=== PATIENT | female | born 2000 | race Caucasian/White ===

== ENCOUNTER 2018-06-20 17:06 | Emergency (ER) | payer OTHER ==
[2018-06-20] MEDS ORDERED: Lidocaine 1% 30 ML SDV INJECT ONE (17:33)
[2018-06-20] MEDS ORDERED: Diphtheria,Pertussis(Acell),Tetanus Vaccine 0.5 ML SDV IM ONE (17:33)
[2018-06-20] MEDS ORDERED: Bacitracin Oint 1 GM U/D Packet TOP ONE (17:40)
--- NOTE | 2018-06-20 17:46 | EDM.PDOC ---
Scribed by Magy Fernandez 06/20/18 0359 for Can Vazquez MD ED HPI GENERAL MEDICAL PROBLEM - General Chief Complaint: General Stated Complaint: FISH HOOK IN FINGER [phone] Time Seen by Provider: 06/20/18 17:28 Source of Information: Reports: Patient, RN, RN Notes Reviewed History Limitations: Reports: No Limitations - History of Present Illness INITIAL COMMENTS - FREE TEXT/NARRATIVE: Patient presents to ER by POV with a fishhook in her right thumb. No other injury. Date of last tetanus is unknown. Onset: Today Location: Reports: Upper Extremity, Right Quality: Reports: Ache Severity: Moderate Improves with: Reports: None Worsens with: Reports: None Associated Symptoms: Reports: No Other Symptoms - Related Data Allergies Allergy/AdvReac Type Severity Reaction Status Date / Time No Known Allergies Allergy Verified 06/20/18 17:20 Home Meds: Home Meds . [No Known Home Meds] 06/20/18 [History] Past Medical History - Past Health History Medical/Surgical History: Denies Medical/Surgical History Social & Family History - Tobacco Use Smoking Status *Q: Never Smoker Second Hand Smoke Exposure: No - Caffeine Use Caffeine Use: Reports: Soda - Recreational Drug Use Recreational Drug Use: No - Living Situation & Occupation Living situation: Reports: with Family ED ROS GENERAL - Review of Systems Review Of Systems: ROS reveals no pertinent complaints other than HPI. ED EXAM, GENERAL - Physical Exam Exam: See Below Exam Limited By: No Limitations General Appearance: Alert, WD/WN, No Apparent Distress Head: Atraumatic, Normocephalic Neck: Normal Inspection Respiratory/Chest: No Respiratory Distress Cardiovascular: Regular Rate, Rhythm Extremities: Normal Range of Motion, Other (small treble fishhook in right thumb , no erythema, no bleeding) Neurological: Alert, Oriented, No Motor/Sensory Deficits Psychiatric: Normal Mood Skin Exam: Warm, Dry Course - Vital Signs Last Recorded V/S: Last Vital Signs Temp 36.8 C 06/20/18 17:24 Pulse 83 06/20/18 17:24 Resp 16 06/20/18 17:24 BP 136/67 06/20/18 17:24 Pulse Ox 99 06/20/18 17:24 - Orders/Labs/Meds Orders: Active Orders 24 hr Category Date Time Status Vaccines to be Administered [RC] PER UNIT ROUTINE Care 06/20/18 17:33 Active Diphth,Pertuss(Acell),Tet Vac [Adacel] Med 06/20/18 17:33 Once 0.5 ml IM .ONCE ONE Medication Orders Diphtheria/Tetanus/Acell Pertussis (Adacel) 0.5 ml IM .ONCE ONE Stop: 06/20/18 17:34 Meds: Medications Generic Name Dose Route Start Last Admin Trade Name Freq PRN Reason Stop Dose Admin Diphtheria/Tetanus/Acell Pertussis 0.5 ml 06/20/18 17:33 Adacel IM 06/20/18 17:34 .ONCE ONE Discontinued Medications Generic Name Dose Route Start Last Admin Trade Name Freq PRN Reason Stop Dose Admin Bacitracin 1 dose 06/20/18 17:40 Bacitracin Oint 1 Gm TOP 06/20/18 17:41 ONETIME ONE Lidocaine HCl 30 ml 06/20/18 17:33 Xylocaine-Mpf 1% INJECT 06/20/18 17:34 ONETIME ONE - Re-Assessments/Exams Free Text/Narrative Re-Assessment/Exam: 06/20/18 17:34 Fish hook removal right thumb. Area cleaned and prepped by RN with hibiclens and sterile water. Area of fish hook locally blocked with lidocaine 1% 5cc. Using clean tech. the eye of the hook and lure were cut free and removed with side cutter. The hook shank grasped with needle nosed plier and advanced until the hook and oralia were exposed through the skin and removed with side cutter. The remaining hook backed out the entry wound. No residual foreign body. Wound was cleansed, and dried, bacitracin ointment applied, and dressing by RN. No complications. Departure - Departure Time of Disposition: 17:44 Disposition: Home, Self-Care 01 Condition: Good Clinical Impression: Fish hook injury of right thumb Qualifiers: Encounter type: initial encounter Qualified Code(s): S69.91XA - Unspecified injury of right wrist, hand and finger(s), initial encounter - Discharge Information *PRESCRIPTION DRUG MONITORING PROGRAM REVIEWED*: Not Applicable *COPY OF PRESCRIPTION DRUG MONITORING REPORT IN PATIENT LEWIS: Not Applicable Instructions: Puncture Wound, [id number] Forms: ED Department Discharge Additional Instructions: Use over the counter Bacitracin Ointment twice a day for 5 days to right thumb puncture wound site. Follow up in clinic or return to ER if any signs of infection develop. - My Orders Last 24 Hours: My Active Orders 06/20/18 17:33 Vaccines to be Administered [RC] PER UNIT ROUTINE Diphth,Pertuss(Acell),Tet Vac [Adacel] 0.5 ml IM .ONCE ONE - Assessment/Plan Last 24 Hours: My Active Orders 06/20/18 17:33 Vaccines to be Administered [RC] PER UNIT ROUTINE Diphth,Pertuss(Acell),Tet Vac [Adacel] 0.5 ml IM .ONCE ONE I have read and agree with the documentation that has been completed regarding this visit. By signing this record, I attest that the documentation was completed in my physical presence and is an accurate record of the encounter.
== END 2018-06-20 17:52 | disposition home or self-care (01) ==
LOC: DL.ED 17:06
DX: S60.351A Superficial foreign body of right thumb, initial encounter (principal); W45.8XXA Other foreign body or object entering through skin, initial encounter; Z23 Encounter for immunization
CPT/HCPCS: 90471; 90715; 99283